=== PATIENT | female | born 1990 | race Caucasian/White ===

== ENCOUNTER 2016-12-14 14:05 | Emergency (ER) | payer MEDICAID ==
--- NOTE | 2016-12-14 14:52 | Emergency Department Report ---
Stated Complaint: SORE THROAT WITH COUGH Time Seen by Provider: 12/14/16 14:50 - HPI History of Present Illness: PT c/o sore throat and vaginal discharge. PT states she was recently treated for a UTI but she states her symptoms just came back. - ROS Review of Systems: + sore throat + vaginal discharge - Exam Physical Exam: pt looks well, non toxic no acute distress gcs 15 steady gait MSE screening note: Focused history and physical exam performed. Due to findings the following was ordered: labs ED Disposition for MSE Condition: Stable
[2016-12-14 14:56] VITALS: BP 114/73
[2016-12-14 15:48] LABS: Bilirubin,Urine NEG (Negative); Blood,Urine SM (Negative); Ketones,Urine NEG (Negative); Leukocyte Esterase,Urine LG (Negative); Mucus,Urine FEW /HPF; Nitrite,Urine NEG (Negative); Protein,Urine <15 mg/dL mg/dL (Negative); Urobilinogen,Urine < 2.0 mg/dL (<2.0)
== END 2016-12-14 18:58 | disposition left against medical advice (07) ==
LOC: ED 14:05
DX: J02.9 Acute pharyngitis, unspecified (principal); Z53.21 Procedure and treatment not carried out due to patient leaving prior to being seen by health care provider
CPT/HCPCS: 81001; 81025

== ENCOUNTER 2017-04-27 16:57 | Emergency (ER) | payer MEDICAID | END 2017-04-27 17:00 | disposition left against medical advice (07) | LOC: ED 16:57 | DX: R10.9 Unspecified abdominal pain (principal); Z53.21 Procedure and treatment not carried out due to patient leaving prior to being seen by health care provider ==

== ENCOUNTER 2021-07-07 18:34 | Emergency (ER) | payer SELFPAY ==
[2021-07-07 20:34] VITALS: BP 134/68
[2021-07-07 21:08] LABS: Bilirubin,Urine NEG (Negative); Blood,Urine NEG (Negative); Color,Urine Straw (Yellow); Protein,Urine <15 mg/dL mg/dL (Negative); RBC,Urine < 1.0 /HPF (0.0-6.0); Urobilinogen,Urine < 2.0 mg/dL (<2.0); WBC,Urine < 1.0 /HPF (0.0-6.0)
[2021-07-07 21:12] LABS: Basophils # (Auto) 0.1 K/mm3 (0.0-0.1); Basophils % (Auto) 0.6 % (0.0-1.8); Eosinophils # (Auto) 0.1 K/mm3 (0.0-0.4); Eosinophils % (Auto) 1.2 % (0.0-4.3); Hemoglobin 13.1 gm/dl (10.1-14.3); Lymphocytes # (Auto) 2.2 K/mm3 (1.2-5.4); Mean Corpuscular HGB Conc 33 % (30-34); Mean Corpuscular Volume 89 fl (79-97); Monocytes # (Auto) 0.8 K/mm3 (0.0-0.8); Monocytes % (Auto) 7.3 % (0.0-7.3); Platelet Count 357 K/mm3 (140-440); Red Blood Count 4.52 M/mm3 (3.65-5.03); Red Cell Distribution Width 13.5 % (13.2-15.2)
[2021-07-07 21:31] LABS: Alanine Aminotransferase 10 units/L (7-56); Albumin 4.5 g/dL (3.9-5); Blood Urea Nitrogen 8 mg/dL (7-17); Calcium 8.9 mg/dL (8.4-10.2); Hemolysis Index 4
[2021-07-07 21:32] LABS: BUN/Creatinine Ratio 13
[2021-07-08] MEDS ORDERED: ONDANSETRON 4 MG ODT TAB PO ONE (00:35)
[2021-07-08 00:41] LABS: HCG Qualitative,Urine Positive (Negative)
--- NOTE | 2021-07-08 02:07 | Emergency Department Report ---
ED Abdominal Pain HPI - General Chief Complaint: Abdominal Pain Stated Complaint: PASSED OUT/VOMITING Time Seen by Provider: 07/08/21 00:34 Source: patient Mode of arrival: Ambulatory Limitations: No Limitations - History of Present Illness Initial Comments: Patient is a 31-year-old -[place] female who presents for abdominal pain with nausea vomiting x4 days. Last menstrual cycle 1 month ago. Patient denies fevers or chills malaise is no dysuria frequency or urgency no vaginal bleeding. Symptoms are exacerbated by p.o. intake. Symptoms are relieved by nothing tried. Patient denies other history. MD Complaint: abdominal pain - Related Data Home Medications Medication Instructions Recorded Confirmed Last Taken Ibuprofen [Motrin] 600 mg PO Q8H PRN 02/20/16 02/20/16 02/20/16 04:00 Previous Rx's Medication Instructions Recorded Last Taken Type Doxylamine Succinate/Vit B6 1 each PO Q8H PRN #30 tab 07/08/21 Unknown Rx [Diclegis Dr 10-10 mg Tablet] Allergies Allergy/AdvReac Type Severity Reaction Status Date / Time No Known Allergies Allergy Verified 10/15/15 16:30 ED Review of Systems ROS: Stated complaint: PASSED OUT/VOMITING Other details as noted in HPI Constitutional: denies: chills, fever Eyes: denies: eye pain, eye discharge, vision change ENT: denies: ear pain, throat pain Respiratory: denies: cough, shortness of breath, wheezing Cardiovascular: denies: chest pain, palpitations Endocrine: no symptoms reported Gastrointestinal: abdominal pain, nausea, vomiting. denies: diarrhea, constipation Genitourinary: denies: urgency, dysuria, frequency, hematuria, discharge Musculoskeletal: denies: back pain, joint swelling, arthralgia Skin: denies: rash, lesions Neurological: denies: headache, weakness, paresthesias, vertigo Psychiatric: denies: anxiety, depression Hematological/Lymphatic: denies: easy bleeding, easy bruising ED Past Medical Hx - Past Medical History Additional medical history: UTI - Social History Smoking Status: Unknown if ever smoked Substance Use Type: Non Opiate Pain, Prescribed - Medications Home Medications: Home Medications Medication Instructions Recorded Confirmed Last Taken Type Ibuprofen [Motrin] 600 mg PO Q8H PRN 02/20/16 02/20/16 02/20/16 04:00 History Doxylamine Succinate/Vit B6 1 each PO Q8H PRN #30 tab 07/08/21 Unknown Rx [Diclegis Dr 10-10 mg Tablet] ED Physical Exam - General Limitations: No Limitations General appearance: alert, in no apparent distress - Head Head exam: Present: normocephalic - Eye Eye exam: Present: normal appearance, PERRL, EOMI Pupils: Present: normal accommodation - ENT ENT exam: Present: mucous membranes moist - Neck Neck exam: Present: normal inspection, full ROM. Absent: tenderness - Respiratory Respiratory exam: Present: normal lung sounds bilaterally. Absent: respiratory distress, wheezes, stridor - Cardiovascular Cardiovascular Exam: Present: regular rate, normal rhythm, normal heart sounds. Absent: systolic murmur, diastolic murmur, rubs, gallop - GI/Abdominal GI/Abdominal exam: Present: soft, normal bowel sounds. Absent: distended, tend erness - Rectal Rectal exam: Present: deferred - Extremities Exam Extremities exam: Present: normal inspection, full ROM, normal capillary refill - Back Exam Back exam: Present: normal inspection, full ROM. Absent: CVA tenderness (R), CVA tenderness (L) - Neurological Exam Neurological exam: Present: alert, oriented X3, CN II-XII intact, normal gait - Psychiatric Psychiatric exam: Present: normal affect, normal mood - Skin Skin exam: Present: warm, dry, intact, normal color. Absent: rash ED Course Vital Signs 07/07/21 20:19 Pulse Rate 76 Respiratory 18 Rate Blood Pressure 134/68 O2 Sat by Pulse 100 Oximetry ED Medical Decision Making - Lab Data Result diagrams: 07/07/21 20:55 07/07/21 20:55 Labs 07/07/21 07/07/21 07/07/21 20:55 20:55 Unknown WBC 10.6 RBC 4.52 Hgb 13.1 Hct 40.0 MCV 89 MCH 29 MCHC 33 RDW 13.5 Plt Count 357 Lymph % (Auto) 21.0 [place] % (Auto) 7.3 Eos % (Auto) 1.2 Baso % (Auto) 0.6 Lymph # (Auto) 2.2 [place] # (Auto) 0.8 Eos # (Auto) 0.1 Baso # (Auto) 0.1 Seg Neutrophils % 69.9 Seg Neutrophils # 7.4 Sodium 136 L Potassium 3.8 Chloride 100.9 Carbon Dioxide 22 Anion Gap 17 BUN 8 Creatinine 0.6 Estimated GFR > 60 BUN/Creatinine Ratio 13 Glucose 89 Calcium 8.9 Total Bilirubin 0.20 AST 15 ALT 10 Alkaline Phosphatase 70 Total Protein 8.0 Albumin 4.5 Albumin/Globulin Ratio 1.3 Urine Color Straw Urine Turbidity Clear Urine pH 7.0 Ur Specific [place] 1.010 Urine Protein <15 mg/dl Urine Glucose (UA) Neg Urine Ketones Neg Urine Blood Neg Urine Nitrite Neg Urine Bilirubin Neg Urine Urobilinogen < 2.0 Ur Leukocyte Esterase Neg Urine WBC (Auto) < 1.0 Urine RBC (Auto) < 1.0 U Epithel Cells (Auto) 3.0 Urine HCG, Qual 07/08/21 Unknown WBC RBC Hgb Hct MCV MCH MCHC RDW Plt Count Lymph % (Auto) [place] % (Auto) Eos % (Auto) Baso % (Auto) Lymph # (Auto) [place] # (Auto) Eos # (Auto) Baso # (Auto) Seg Neutrophils % Seg Neutrophils # Sodium Potassium Chloride Carbon Dioxide Anion Gap BUN Creatinine Estimated GFR BUN/Creatinine Ratio Glucose Calcium Total Bilirubin AST ALT Alkaline Phosphatase Total Protein Albumin Albumin/Globulin Ratio Urine Color Urine Turbidity Urine pH Ur Specific [place] Urine Protein Urine Glucose (UA) Urine Ketones Urine Blood Urine Nitrite Urine Bilirubin Urine Urobilinogen Ur Leukocyte Esterase Urine WBC (Auto) Urine RBC (Auto) U Epithel Cells (Auto) Urine HCG, Qual Positive A - Radiology Data Radiology results: image reviewed - Medical Decision Making Ultrasound OB positive single IUP, 6 weeks 1 day, heart rate 105 bpm. Patient advises symptoms are improving. Diagnosis is , abdominal pain during . Patient will follow-up with [facility] in 2 3 days. Patient will return or should symptoms worsen.. Critical care attestation.: If time is entered above; I have spent that time in minutes in the direct care of this critically ill patient, excluding procedure time. ED Disposition Clinical Impression: Abdominal pain during Qualifiers: Trimester: first trimester Qualified Code(s): O26.891 - Other specified related conditions, first trimester; R10.9 - Unspecified abdominal pain Disposition: HOME / SELF CARE / HOMELESS Is pt being admited?: No Does the pt Need Aspirin: No Condition: Stable Instructions: Abdominal Pain (ED), Abdominal Pain During , Care Additional Instructions: Take medications as prescribed, follow-up with your [facility] in 2 to 3 days. Call to make appointment. Return to emergency should symptoms worsen. Prescriptions: Doxylamine Succinate/Vit B6 [Karen Griffin 10-10 mg Tablet] 1 each PO Q8H PRN #30 tab PRN Reason: Nausea And Vomiting Referrals: SUKUMAR ARRIOLA MD [Staff Physician] - 3-5 Days Forms: Work/School Release Form(ED) Time of Disposition: 03:12
--- NOTE | 2021-07-08 03:28 | Ultrasound Report ---
ULTRASOUND OBSTETRIC INDICATION / CLINICAL INFORMATION: abd pain pos preg. TECHNIQUE: Transabdominal. COMPARISON: None available. FINDINGS: GESTATIONAL SAC: Well-defined oval shape and intrauterine in location. YOLK SAC: No significant abnormality. EMBRYO/FETUS: No significant abnormality. - [place]-Rump Length = 4.2 cm = 6.1 weeks.days - Heart Rate, beats per minute (if present) = 105 ADNEXA: No significant abnormality. FREE FLUID: None. ADDITIONAL FINDINGS: None. IMPRESSION: 1. Single, living intrauterine with estimated sonographic age of 6.1 weeks.days. Signer Name: Raúl Meng MD Signed: 07/08/2021 3:24 AM Workstation Name: [email or web address]
== END 2021-07-08 03:27 | disposition home or self-care (01) ==
LOC: ED 18:34
DX: O26.891 Other specified pregnancy related conditions, first trimester (principal); R10.9 Unspecified abdominal pain; Z3A.01 Less than 8 weeks gestation of pregnancy
CPT/HCPCS: 36415; 76801; 80053; 81001; 81025; 84702; 85025; 99284; J3490; Q0162